=== PATIENT | male | born 1945 | race Caucasian/White ===

== ENCOUNTER 2020-11-25 17:56 | Emergency (ER) | payer MEDICARE, SELFPAY ==
[2020-11-25 18:02] VITALS: BP 187/97; PULSE 61; RESP 15; TEMP 37.1; O2SAT 98; BMI 27.6
--- NOTE | 2020-11-25 18:46 | ED.GENADULT ---
HPI - General Adult General Chief complaint: Urogenital-Male Stated complaint: right groin area, bulge, rupture sent by [facility] Time Seen by Provider: 11/25/20 18:25 Source: patient Mode of arrival: Ambulatory Limitations: no limitations History of Present Illness HPI narrative: 75-year-old male who approximately 10 days ago started noticing some discomfort in his right lower quadrant/right inguinal region. Today he noticed a bulge in this area. He went to the walk-in clinic who sent him to the emergency department. He denies any fevers. No vomiting. No problems urinating. No change in bowel habits. He stated that he did have an inguinal hernia that was repaired when he was a very young child. He also has had his appendix removed. No testicular pain although he does feel taking down into his groin region. Related Data Allergies Allergy/AdvReac Type Severity Reaction Status Date / Time No Known Drug Allergies Allergy Verified 11/25/20 18:07 Review of Systems Constitutional Constitutional: Reports system reviewed and no additional complaints, except as documented Cardiovascular Cardiovascular: Reports system reviewed and no additional complaints, except as documented Respiratory Respiratory: Reports system reviewed and no additional complaints, except as documented Gastrointestinal Gastrointestinal: Denies constipation, Denies diarrhea, Denies nausea and Denies vomiting Genitourinary Comments: Bulge in right inguinal region Musculoskeletal Musculoskeletal: Denies arthralgias and Denies myalgias Integumentary/Breasts Skin/Breast: Denies rash Neurologic Neurologic: Reports system reviewed and no additional complaints, except as documented Hematologic/Lymphatic Hematologic/Lymphatic: Reports system reviewed and no additional complaints, except as documented Allergic/Immunologic Allergic/Immunologic: Reports system reviewed and no additional complaints, except as documented Patient History Surgical History Hx of appendectomy Social History Smoking Status: Unknown if ever smoked Smoking Status: Unknown if ever smoked alcohol intake frequency: holidays/special occasions only Substance Use Type: does not use Exam Initial Vital Signs Initial Vital Signs: Vital Signs Temperature 98.7 F 11/25/20 18:02 Pulse Rate 61 11/25/20 18:02 Respiratory Rate 15 11/25/20 18:02 Blood Pressure 187/97 H 11/25/20 18:02 Pulse Oximetry 98 11/25/20 18:02 Const General: cooperative and comfortable Limitations: mental status not altered HENMT Head: normal to inspection and normocephalic GI Inspection: non-distended Palpation: No firm and No tender External: circumcised Penis: normal penis Scrotum: scrotum normal Testes: normal and testicular lie normal Other: Right-sided inguinal hernia Skin Lesions: no lesions Rashes: no rashes Neuro General: patient alert and patient awake Extrem General: normal to inspection and capillary refill normal Psych Appearance: grossly normal and well kempt Course Vital Signs Vital signs: Vital Signs - 8 hr 11/25/20 18:02 11/25/20 19:16 Temperature 98.7 F Pulse Rate 61 65 Respiratory Rate 15 16 Blood Pressure 187/97 H 167/77 H Pulse Oximetry 98 97 Medical Decision Making [facility] Narrative Medical decision making narrative: Patient's history and physical exam is consistent with a right-sided inguinal hernia. It is reducible during the exam and is very easily reducible on its own when he lays down. He is not have any bowel changes. No fevers. No urinary symptoms. Low concern for strangulation/incarceration. He was given the phone number for the General surgery group in order to contact them for a follow-up. He was given strict return precautions with regard to the hernia. He expressed understanding and agreement. Discharge Plan Departure Patient Disposition: Home Clinical Impression: Hernia Instructions: DI for Groin Hernia Activity Restrictions/Additional Instructions: I recommend you contact the [facility] group at [phone]. You can discuss with them the indications for potential surgical repair. If you ever start to get fevers, problems urinating, problems having bowel movements, vomiting or a bulge that does not retract or worsening pain please return to the emergency department. Referrals: Ravi Mejia MD [Physician] - Sal Rg MD [Primary Care Provider] -
[2020-11-25 19:16] VITALS: BP 167/77; PULSE 65; RESP 16; O2SAT 97
== END 2020-11-25 19:17 | disposition home or self-care (01) ==
PROVIDERS: Emergency Provider Emergency Medicine; PCP Internal Medicine
DX: K40.90 Unilateral inguinal hernia, without obstruction or gangrene, not specified as recurrent (principal)
CPT/HCPCS: 99281